=== PATIENT | female | born 1990 | race Caucasian/White ===

== ENCOUNTER 2023-09-02 15:41 | Emergency (ER) | payer OTHER, SELFPAY ==
--- NOTE | ~2023-09-02 | CT_ITS ---
EXAMINATION: CT chst ab chandu keen wo DATE: 09/02/2023 20:36 INDICATION: Diffuse pain after fall TECHNIQUE: Transaxial computed tomographic images of the chest, abdomen, pelvis, thoracic spine, and lumbar spine were obtained without intravenous contrast. The dose-length product (DLP) was 1750.24 mG y-cm. Automated exposure control and iterative reconstruction technique were employed. COMPARISON: None FINDINGS: CHEST CT: The examination is limited by the absence of intravenous contrast. There is mild dependent atelectasi s. The lungs are free of focal airspace opacities. No pleural effusion or pneumothorax. No pathologic ally enlarged thoracic lymph nodes are identified. The heart size is normal. ABDOMEN/PELVIS CT: Evaluation for solid organ injury is limited by the absence of intravenous contrast. Within this limi tation, the liver, spleen, pancreas, and adrenal glands appear normal. There are changes of cholecyst ectomy. Nonobstructing stones of the left kidney measure up to 3 mm. The right kidney is unremarkable . No pathologically enlarged abdominal or pelvic lymph nodes are identified. No free intraperitoneal gas or evidence of bowel obstruction. A moderate volume of colonic stool is present. The appendix is normal. Thoracic spine CT: Bone alignment is normal. There is no fracture. There is mild loss of intervertebral disc space heigh t at multiple levels throughout the thoracic spine. Lumbar spine CT: There are 3 mm of retrolisthesis of L5 on S1. There is mild loss of intervertebral disc space height at L5-S1. There is no fracture of the lumbar spine. The vertebral body heights are maintained. IMPRESSION: 1. No acute abnormality identified in the chest, abdomen, or pelvis. 2. Mild thoracic spondylosis without acute osseous abnormality. 3. Mild lumbar spondylosis without acute osseous abnormality. 4. Nonobstructing left nephrolithiasis. Reviewed, dictated and finalized at location F. [employer] EXAMINER
--- NOTE | ~2023-09-02 | CT_ITS ---
EXAMINATION: CT brain wo con INDICATION: Head injury COMPARISON: None TECHNIQUE: Standard unenhanced head CT. The dose-length product (DLP) was 605.33 mGy-cm. The mA was a djusted according to patient size. Iterative reconstruction technique was employed. FINDINGS: No intracranial hemorrhage, acute infarction, or abnormal mass lesion. The ventricles are n ormal. No abnormal mass effect or midline shift. The ivey-white matter differentiation is normal. The basal cisterns are patent. The orbits are normal. There is moderate opacification of the left maxill magnus sinus. There is mild mucosal thickening of the right maxillary sinus and the ethmoidal air cells. IMPRESSION: 1. No acute intracranial abnormality. 2. Sinus disease. Reviewed, dictated and finalized at location F. STANT COOK
--- NOTE | ~2023-09-02 | XR_ITS ---
EXAMINATION: XR shoulder LT min 2V INDICATION: Left shoulder pain TECHNIQUE: Four views of the left shoulder are submitted. COMPARISON: None FINDINGS: Normal alignment. No fracture. Glenohumeral and acromioclavicular joint spaces are normal. Soft tissues are unremarkable. IMPRESSION: 1. No acute osseous abnormality. Reviewed, dictated and finalized at location F. INE S[employer] WRITER
--- NOTE | ~2023-09-02 | CT_ITS ---
EXAMINATION: CT cervical spine wo con DATE: 09/02/2023 20:29 INDICATION: Head injury TECHNIQUE: Computed tomography (CT) of the cervical spine was performed without intravenous contrast. The dose-length product (DLP) was 432.00 mGy-cm. Automated exposure control and iterative reconstruc tion technique were employed. COMPARISON: None FINDINGS: Bone alignment is normal. There is no fracture. The odontoid process is intact. The vertebr al body heights and intervertebral disc spaces are maintained. Small anterior endplate osteophytes ar e noted at C5-6. A mild posterior disc bulge is noted at C5-6. The odontoid process is intact. IMPRESSION: 1. Mild cervical spondylosis without acute findings. Reviewed, dictated and finalized at location F. [employer]
[2023-09-02 15:51] VITALS: BP 111/78; PULSE 92; RESP 18; TEMP 36.8; O2SAT 100
[2023-09-02 18:32] VITALS: BP 144/86; PULSE 88; RESP 18; TEMP 36.3; O2SAT 97
[2023-09-02] MEDS: ACETAMINOPHEN 500 MG TABLET 1000 MG PO (19:54)
[2023-09-02] MEDS: CYCLOBENZAPRINE HCL 10 MG TABLET PO (19:55)
--- NOTE | 2023-09-02 20:06 | ED.FALL ---
HPI - Fall General Chief Complaint: Fall Stated Complaint: fell/back pain/headache Time Seen by Provider: 09/02/23 18:47 History of Present Illness HPI Narrative: 33-year-old female is reporting for evaluation after mechanical fall that occurred prior to arrival. Patient states she was walking up the stairs when she slipped, landing on her back. States she hit her head on the stairs, no LOC. She is reporting pain to her head, neck, thoracic spine and lumbar spine, chest wall, abdomen and left shoulder. She is reporting paresthesias down her left arm. Denies numbness, saddle anesthesia, bowel or bladder incontinence or retention, Vision changes, difficulty ambulating. She has ambulated in the ED without ataxia. she has not taken anything for pain. Related Data Allergies Allergy/AdvReac Type Severity Reaction Status Date / Time NSAIDS (Non-Steroidal Allergy Hives Verified 09/02/23 15:43 Anti-Inflamma iodine AdvReac Unknown Verified 09/02/23 15:43 Review of Systems Review of Systems: CONSTITUTIONAL: Denies fever, chills, or sweats. EYES: Denies visual changes, redness, or discharge. ENT: Denies rhinorrhea, congestion, sore throat, or otalgia. CARDIOVASCULAR: Denies chest pain, palpitations, or edema. RESPIRATORY: Denies cough or dyspnea. GASTROINTESTINAL: Denies abdominal pain, nausea, vomiting, or diarrhea. GENITOURINARY: Denies dysuria or hematuria. SKIN: Denies rash or itching. MUSCULOSKELETAL: see HPI NEUROLOGIC: See HPI PSYCHIATRIC: Denies anxiety or depression. Exam Narrative: GENERAL: Well-appearing, well-nourished, and in no acute distress. HEAD: Normocephalic, atraumatic. tenderness to the occiput without overlying edema, ecchymosis, lacerations. No crepitus, step-offs or deformities EYES: PERRLA and EOMI. ENT: Nares clear, no rhinorrhea or epistaxis. Mucous membranes moist. bilateral TMs without hemotympanum is a NECK: midline cervical spinous tenderness without step-offs or deformities BACK: Generalized thoracolumbar spine step-offs or deformities. No saddle anesthesia. CHEST: Clear to auscultation. No respiratory distress. generalized tenderness to anterior chest wall. No step-offs or deformities. No ecchymosis. HEART: Regular rate and rhythm. No murmur heard. Normal peripheral pulses. ABDOMEN: Normoactive bowel sounds. Generalized abdominal tenderness without guarding, rebound or rigidity. EXTREMITIES: LUE: Tenderness to the left scapula extending into the AC joint. No tenderness to the glenohumeral joint or proximal humerus. Limited shoulder flexion and abduction secondary to pain. No tenderness remainder of left upper extremity. Remainder of extremities are unremarkable. Radial and DP pulses 2+. SKIN: Warm, dry, no rash. NEURO: No focal deficits. Alert and oriented x3. Cranial nerves 2-12 intact. Strength 5/5 in BUE and BLE. Sensation intact throughout. No saddle anesthesia. Course Vital Signs Vital signs: Vital Signs Temperature 98.3 F 09/02/23 15:51 Pulse Rate 92 09/02/23 15:51 Respiratory Rate 18 09/02/23 15:51 Blood Pressure 111/78 09/02/23 15:51 Pulse Oximetry 100 09/02/23 15:51 Oxygen Delivery Room Air 09/02/23 15:51 Temperature 97.4 F L 09/02/23 18:32 Pulse Rate 88 09/02/23 22:17 Respiratory Rate 15 09/02/23 22:17 Blood Pressure 110/82 09/02/23 22:17 Pulse Oximetry 98 09/02/23 22:17 Oxygen Delivery Room Air 09/02/23 15:51 MDM - Fall MDM Narrative Medical decision making narrative: 33-year-old female is reporting for evaluation after mechanical fall that occurred prior to arrival. See HPI for further history. Vitals are stable. Exam is significant for the above. No LOC. No neurologic deficits on exam. Labs obtained without significant abnormality. UA is unremarkable. CT head shows no acute intracranial abnormality. There is evidence of sinus disease. The patient does note that she has had sinus congesti
[2023-09-02 20:15] LABS: Basophils Absolute Auto 0.1 K/mm3 (0.0-0.1); Basophils Percent Auto 0.8 % (0.2-1.2); Eosinophils Absolute Auto 0.4 K/mm3 (0-0.3); Eosinophils Percent Auto 4.1 % (0-4.4); Hematocrit 38.5 % (37.0-47.0); Hemoglobin 12.3 g/dL (12.0-15.0); Immature Granulocyte Absolute 0.05 K/mm3 (0.00-0.031); Immature Granulocyte Percent A 0.5 % (0-0.5); Lymphocytes Absolute Auto 3.68 K/mm3 (0.9-3.2); Lymphocytes Percent Auto 37.8 % (18.3-44.2); Mean Corpuscular HGB Conc 31.9 g/dl (32-36); Monocytes Absolute Auto 0.6 K/mm3 (0.1-0.6); Monocytes Percent Auto 6.3 % (2.6-8.5); Neutrophils Absolute Auto 4.9 K/mm3 (1.3-6.7); Neutrophils Percent Auto 50.5 % (45.5-73.1); Platelet Count Result 320 k/mm3 (150-375); Red Blood Count 3.97 M/mm3 (4.2-5.4); Red Cell Distribution Width 13.2 % (11.5-14.5); White Blood Count 9.7 K/mm3 (4.5-10.0)
[2023-09-02 20:24] LABS: Alanine Aminotransferase 20 U/L (6-35); Alkaline Phosphatase 109 U/L (38-126); Anion Gap 11 mmol/L (8-16); Aspartate Amino Transferase 22 U/L (14-36); Bilirubin,Total 0.5 mg/dL (0.2-1.3); Blood Urea Nitrogen 17 mg/dL (7-17); Carbon Dioxide 20 mmol/L (22-30); Chloride 108 mmol/L (98-107); Estimated CRCL calculation 97 ml/min; Estimated Glomerular Filt Rate > 60; Glucose 102 mg/dL (65-110); Potassium 3.4 mmol/L (3.4-5.0); Sodium 139 mmol/L (137-145)
[2023-09-02 20:25] LABS: Appearance Urine Cloudy (Clear); Bacteria Urine None Seen /hpf; Bilirubin Urine Negative (Negative); Blood Urine Negative (Negative); Color Urine Yellow (Yellow); Glucose Urine UA Negative (Negative); Ketones Urine Negative (Negative); Leukocyte Esterase Ur Negative LEU/UL (Negative); Nitrate Urine Negative (Negative); Non Pathogenic Casts 0-2; Protein Urine Negative (Negative); RBC Urine 0-2 /hpf (0-2); Specific Grav Ur 1.023 (1.001-1.035); Squamous Epithelial Cell Urine None seen /hpf (Few); Urobilinogen Urine 0.2 mg/dL (<2.0); WBC Urine 0-5 /hpf
[2023-09-02 20:28] LABS: Add Urine Microscopic? YES
[2023-09-02] MEDS: MORPHINE SULFATE (*CRX) 4 MG/ML INJ IV PUSH (21:53)
[2023-09-02 22:17] VITALS: BP 110/82; PULSE 88; RESP 15; O2SAT 98
== END 2023-09-02 22:19 | disposition home or self-care (01) ==
PROVIDERS: Emergency Provider Physician Assistant
DX: S09.90XA Unspecified injury of head, initial encounter (principal); S39.012A Strain of muscle, fascia and tendon of lower back, initial encounter; S43.402A Unspecified sprain of left shoulder joint, initial encounter; J32.9 Chronic sinusitis, unspecified; M47.814 Spondylosis without myelopathy or radiculopathy, thoracic region; M47.816 Spondylosis without myelopathy or radiculopathy, lumbar region; M47.812 Spondylosis without myelopathy or radiculopathy, cervical region; N20.0 Calculus of kidney; W10.9XXA Fall (on) (from) unspecified stairs and steps, initial encounter
CPT/HCPCS: 36415; 70450; 71250; 72125; 72128; 72131; 73030; 74176; 80053; 81001; 81025; 85025; 96374; 99284; A9270; J2270